=== PATIENT | male | born 1990 | race Caucasian/White ===

== ENCOUNTER 2020-01-14 03:07 | Emergency (ER) | payer SELFPAY ==
[~2020-01-14] VITALS: Ht 165.1 cm; Wt 72.6 kg
--- NOTE | 2020-01-14 03:07 | NUR ---
Dr. Randall examining patient.
--- NOTE | 2020-01-14 03:07 | NUR ---
PT BIB [facility], PREBOOK. TAKEN TO BED 5
[2020-01-14 03:09] VITALS: BP 140/94
[2020-01-14 03:14] VITALS: BP 140/94
--- NOTE | 2020-01-14 03:15 | NUR ---
Patient discharged with v/s stable. Written and verbal after care instructions given and explained. Patient verbalized understanding. Ambulatory with steady gait. All questions addressed prior to discharge. Advised to follow up with PMD.
== END 2020-01-14 03:15 | disposition home or self-care (01) ==
LOC: MED 03:07
DX: S00.81XA Abrasion of other part of head, initial encounter (principal); Z02.89 Encounter for other administrative examinations; X58.XXXA Exposure to other specified factors, initial encounter; Y93.89 Activity, other specified; Y92.89 Other specified places as the place of occurrence of the external cause; Y99.8 Other external cause status
CPT/HCPCS: 99283